=== PATIENT | female | born 1995 | race Caucasian/White ===

== ENCOUNTER 2018-07-08 16:00 | Inpatient (IN) ==
--- OUTSIDE RECORDS SUMMARY | 2018-07-08 19:12 | External Medical Summary | Continuity of Care Document ---
:1995 Author Organization [facility] Address [address] [place], [place] [id number] Phone Care Team Providers Name Role Phone Duong Enamorado DO Unavailable Unavailable Allergies, Adverse Reactions, Alerts Substance Reaction Severity Status amoxicillin Hives/Itchy Unknown Active Medications Medication Instructions Dosage Effective Dates Status Comments (start - stop) ranitidine 150 mg take 1 tablet by 150 MG - Active tablet oral route 2 times every day 28 mg take 1 tablet by Not Available - Active iron-800 mcg oral route every tablet day Tylenol 325 mg take 2 tablet by 650 MG - Active tablet oral route every 6 hours as needed Problems Condition Effective Dates (start - stop) Clinical Status Oth related conditions, - third trimester Obesity complicating , third - trimester Encntr for suprvsn of normal first - preg, third trimester 36 weeks gestation of - Encntr for suprvsn of normal first - preg, first trimester 11 weeks gestation of - Placenta previa specified as w/o - hemorrhage, unsp trimester Encntr for suprvsn of normal first - preg, second trimester Encounter For Screening For - Nuchal Translucency 15 weeks gestation of - Vomiting of , unspecified - Obesity complicating , third - trimester Encntr for suprvsn of normal first - preg, third trimester 38 weeks gestation of - Threatened Threatened - Oth related conditions, - third trimester Obesity complicating , third - trimester Encntr for suprvsn of normal first - preg, third trimester 31 weeks gestation of - Oth related conditions, - third trimester Obesity complicating , third - trimester Encntr for suprvsn of normal first - preg, third trimester 37 weeks gestation of - Oth related conditions, - third trimester Obesity complicating , third - trimester Encntr for suprvsn of normal first - preg, third trimester 33 weeks gestation of - Abnormal ultrasonic finding on - screening of mother Obesity complicating , third - trimester 31 weeks gestation of - Abnormal ultrasonic finding on - screening of mother Encntr for suprvsn of normal first - preg, second trimester 23 weeks gestation of - Oth allergy status, oth than to drugs - and biolg substances Abnormal ultrasonic finding on - screening of mother 23 weeks gestation of - Placenta previa specified as w/o - hemorrhage, unsp trimester 19 weeks gestation of - Obesity complicating , second - trimester Encntr for suprvsn of normal first - preg, second trimester 27 weeks gestation of - Obesity complicating , third - trimester Encntr for suprvsn of normal first - preg, third trimester 39 weeks gestation of - Obesity complicating , third - trimester 35 weeks gestation of - Obesity complicating , third - trimester Encntr for suprvsn of normal first - preg, third trimester 29 weeks gestation of - Encntr for suprvsn of normal first - preg, first trimester 13 weeks gestation of - Encntr for suprvsn of normal first - preg, second trimester 20 weeks gestation of - Oth allergy status, oth than to drugs - and biolg substances Encntr for suprvsn of normal first - preg, second trimester 19 weeks gestation of - Asthma Active Depression Active Procedures Procedure Date OB Visit No Charge Results Test Name Date and Time Measure Units Reference Range Abnormal Flag Comments Panel Description: Strep Gp B Culture+Rflx Strep Gp B Negative Negative Centers for Disease Control Culture+Rflx 11:56:00 and Prevention (CDC) and [place] Congressof Obstetricians and Gynecologists (ACOG) guidelines for prevention ofperinatal group B streptococcal (GBS) disease specify co-collection ofa vaginal and rectal swab specimen to maximize sensitivity of GBSdetection. Per the CDC and ACOG, swabbing both the lower vagina andrectum substantially increases the yield of detection compared withsampling the vagina alone. .Penicillin G, ampicillin, or cefazolin are indicated for intrapartumprophylaxis of GBS colonization. Reflex susceptibilitytesting should be performed prior to use of clindamycin only on GBSisolates from penicillin-allergic women who are considered a high riskfor anaphylaxis. Treatment with vancomycin without additional testingis warranted if resistance to clindamycin is noted. Advance Directives Directive Yes / No Effective Date File Name Unknown Encounters Encounter Practice Location Reason(s) Diagnoses Date Provider Care Team Description For Visit Members [facility] Sobbing In Womens complicating [place], , third 8 700 [address] trimesterEncntr Medical 152, for suprvsn of [place], normal [address], [place], preg, third [id number], [email or web address] weeks 120, [place] gestation of [facility], tel:+ [place], [phone], [place]. tel: [phone] [facility] Vomiting of Jun- Sobbing In Womens , [place], unspecifiedObesit 8 700 PO [address] y complicating Medical 152, , third [facility] [place], [facility] health[facility]tr [place], for suprvsn of [id number], normal first 120, [place] preg, third [place], tel:[phone] [id number] weeks [place], [place] [address], [place]. tel: [phone] [facility] Ot Aug-0 Sobbing In Womens related 9 [place], conditions, third 8 700 PO Box trimesterObesity Medical 1522, complicating [facility] [place], , third [place], [place], trimesterEncntr [id number], for suprvsn of 120, [place] normal first [place], tel:[phone] preg, third [place], [email or web address] weeks [address], gestation of [place]. tel: [phone] [facility] Ot Aug-0 Sobbing In Womens related 2 [place], conditions, third 8 700 PO Box trimesterObesity Medical 1522, complicating [facility] [place], , [place], [place], trimesterEncntr Suite , for suprvsn of 120, [place] normal first [place], tel:[phone] preg, third [place], [email or web address] weeks [id number], gestation of [place]. tel: [phone] [facility] Obesity Gokul-2 Sobbing In Womens Ultrasound complicating 6 [place], , third 8 700 PO [address] [email or web address] weeks Medical 1522, gestation of [facility], [place], [place], Suite , 120, [place], tel:[phone] [place], [address], [place]. tel: [phone] [facility] Ot Gokul-1 Sobbing In Womens related 2- [place], conditions, third 8 700 PO Box trimesterObesity Medical 1522, complicating [facility] [place], , third [place], [place], trimesterEncntr Suite , for suprvsn of 120, [place] normal first [place], tel:[phone] preg, third [place], [email or web address] weeks [address], gestation of [place]. tel: [phone] [facility] Ot Mio-2 Sobbing In Womens related 8- [place], conditions, third 8 700 PO Box trimesterObesity Medical 1522, complicating [facility] [place], , third [address], [place], trimesterEncntr [id number], for suprvsn of 120, [place] normal first [place], tel:[phone] preg, third [place], [id number] weeks [address], gestation of [place]. tel: [phone] [facility] Abnormal Mio-2 Sobbing In Womens Ultrasound ultrasonic 8 [place], finding on 8 700 PO Box Medical 1522, screening of [place], community healthObesity [place], [place], complicating [id number], , third 120, [place] [id number] weeks [place], tel:[phone] [place], [address], [place]. tel: [phone] [facility] Mio-1 Sobbing In Womens complicating 4 [place]. Jeffy [place], , third 8 700 PO Box trimesterEncntr Medical 1522, for suprvsn of [place], normal [address], [place], preg, third [id number], [email or web address] weeks 120, [place] gestation [place], tel:+[phone] [place], [address], [place]. tel: [phone] [facility] May-3 Sobbing Referring In Womens complicating [place]. Provider: Jeffy [place], , second 8 700 [place] PO Box trimesterEncntr Medical Sobbing L, 1522, for suprvsn of Center [address] [place] [address], [address], Medical [place], preg, second Suite Center [id number], [email or web address] weeks 120, Drive [place] gestation of [place], [address], tel:+[phone] [place], [place], [address], [place], [address]. [place]. tel:+ tel: [phone] [facility] Abnormal May-0 Sobbing In Womens ultrasonic 3 [place] VINNIE, finding on 8 700 PO Box Medical 1522, screening of [place], [facility] [place], suprvsn of normal [address] [id number], first preg, 120, [place] second [place], tel:[phone] [id number] weeks [place] [address], pregnancyOth [place]. allergy status, tel:[phone] oth than to drugs [phone] and biolg substances [facility] Abnormal May-0 Sobbing In Womens Ultrasound ultrasonic 3-201 [place] VINNIE, finding on 8 700 PO Box Medical 1522, screening of [place], weeks [place], [place], gestation of [id number], 120, [place], tel:+[phone] [place], [address], [place]. tel: [phone] [facility] Encntr for Apr-1 Sobbing In Womens suprvsn of normal 2-201 [facility] VIN[facility]IE, first preg, 8 700 PO Box second Medical 1522, [email or web address] weeks [place], gestation of [place], [place], pregnancyOth Suite , allergy status, 120, [place] oth than to drugs [facility], tel:+ [place], substances [address], [place]. tel: [phone] [facility] Encntr for Apr-0 Sobbing In Womens suprvsn of normal 5-201 [place] VINNIE, first preg, 8 700 PO Box second Medical 1522, [email or web address] weeks [place], gestation of [place], [place], [address] [id number], 120, [place], tel:+[phone] [place], [address], [place]. tel: [phone] [facility] Placenta previa Apr-0 Sobbing In Womens Ultrasound specified as w/o 5-201 [place] VINNIE, hemorrhage, unsp 8 700 PO Box [email or web address] weeks Medical 1522, gestation of [place], [place], [place], [address] [id number], 120, [place], tel:+316 [place], [address], [place]. tel: [phone] [facility] Placenta previa Mar-0 Sobbing In Womens specified as w/o 8-201 [place] VINNIE, hemorrhage, unsp 8 700 PO Box trimesterEncntr Medical 1522, for suprvsn of [place], normal first [place], [place], preg, second [address] [id number], trimesterEncounte 120, [place] r For [facility]za, tel:[phone] Screening For [place], Nuchal [address], [id number] [place]. weeks gestation tel:[phone] of [phone] [facility] Encntr for Feb-2 Sobbing In Womens Ultrasound suprvsn of normal 2-201 [facility], first preg, first 8 700 PO Box [email or web address] weeks Medical 1522, gestation of [place], [place], [address] [id number], 120, [place], tel:[phone] [place], [address], [place]. tel: [phone] [facility] Encntr for Feb-0 Sobbing In Womens suprvsn of normal 8-201 [facility], first preg, first 8 700 PO Box [email or web address] weeks Medical 1522, gestation of [place], [place], [address] [id number], 120, [place], tel:[phone] [place], [address], [place]. tel: [phone] Mickey [place] Threatened Timur-1 Sobbing In Womens 1-201 [facility] VINNIE, 8 700 PO Box Medical 1522, [place], [place], [address] [id number], 120, [place], tel:[phone] [place], [address], [place]. tel: [phone] Mickey [place] Threatened Timur-1 [place] In Womens 1-201 [place] VINNIE, 8 700 PO Box Medical 1522, [facility], , [place], 120, [id number], [place], [place], tel:[phone] , [place]. tel: [phone] Family History Family Member Diagnosis Age At Onset Unknown Immunizations Vaccine Date Status Comments Tdap completed Source: New Immunization Record Payers Payer name Insurance type Covered republican ID Authorization(s) [facility] Medicaid [id number] [facility] [id number] [facility] Medicaid [id number] Social History Type Description Quantity Date Captured Alcohol Use Details No Caffeine Use Details Unknown Tobacco Use Status Smoking Status Former smoker Vital Signs Date / Height Weight BMI Pulse Blood Temperature Respiratory Body Head BMI Time: Rate Pressure Rate Surface Circumference percentile Area 212.40 38.8 lbs 4 mm[Hg] 11:25 kg/m AM eter (2) Chief Complaint And Reason For Visit Unknown Chief Complaint And Reason For Visit Reason For Referral Reason For Referral Unknown Plan Of Care Date Type Action Status Goal Tobacco cessation counseling completed Appointment [facility] BOOKED Future Order: Radiology Order Ultrasound OB Follow-up ([id number]) Ordered Future Order: Radiology Order Ultrasound OB Follow-up ([id number]) Ordered Future Order: Radiology Order OB Detailed Complete Ultrasound Ordered ([id number]) Future Order: Radiology Order Ultrasound OB Follow-up ([id number]) Ordered Future Order: Radiology Order Nuchal Translucency ([id number]) Ordered Date Type Problem Goal Intervention Status Start Date Unknown. History Of Present Illness Encounter Date Complaint History Of Present Illness This patient has no known history of present illness Functional Status Encounter Date Functional Assessment Cognitive Assessment Unknown Medications Administered Medication Instructions Dosage Effective Dates (start - stop) Status Comments Drug Treatment Unknown Instructions Date Instruction Additional Information exercise indications for ultrasound influenza vaccine environmental / work hazards travel tobacco (ask, advise, assess, assist and arrange) use of any medications (including supplements, vitamins, herbs, OTC drugs) smoking counseling domestic violence seat belt use childbirth classes / hospital facilities hospital registration genetic testing new ob handbook HIV and other routine tests risk factors identified by history anticipated course of care nutrition and weight gain counseling, special diet toxoplasmosis precautions (cats / raw meat) sexual activity
--- OUTSIDE RECORDS SUMMARY | 2018-07-08 19:13 | External Medical Summary | Continuity of Care Document ---
:1995 Author Organization [facility] Allergies Active Description Code Type Severity Reaction Onset Reported/ Identified Relationship Clinical to Patient Status Yes amoxicillin 3675 1 N/A Hives/Itc hy Yes No Known NKMA N/A N/A 09/08/2014 Medication Allergies Yes No Known Aller Unknown N/A 02/12/2015 Allergies gy Yes amoxicillin Aller Unknown N/A 06/28/2018 gy Medications Medication Packaging Start Stop Route Dosage Sig Date Date 1 tabs 10/09/20 Oral 4 mg ondansetron(Zofra 4 14 1 tabs, n 4 mg oral Oral, q6hr, tablet) 30 tabs, PRN: as needed for nausea/vomi ting 1 packets 12/07/19 Oral azithromycin(Zith 5 15 1 packets, romax Z-Cristofer 250 Oral, mg oral tablet) Daily, as directed on package labeling, 6 tabs 1 caps 12/12/19 Oral 200 mg benzonatate(Leslye 5 15 1 caps, yael 200 mg oral Oral, TID, capsule) 30 caps 2 puffs Inhalation albuterol(Ventoli 5 2 puffs, n HFA 90 mcg/inh Inhalation, inhalation q4hr, 1 aerosol) inhalers, PRN: as needed for wheezing PO 4 mg Zofran Odt 5 Q6HR PO 250 mg Zithromax 5 DAILY Each SubCutaneous mg etonogestrel(Nexp 5 Each, lanon 68 mg SubCutaneou subcutaneous s, Once implant) 2 tabs 08/03/20 Oral 10 mg norethindrone(Ayg 5 15 2 tabs, estin 5 mg oral Oral, tablet) Daily, 20 tabs 03/15/20 IntraMuscular 4 mg ondansetron(ondan 5 15 4 mg, setron) IntraMuscul ar, Once 1 tabs 09/07/20 Oral 10 mg escitalopram(Wenceslao 5 15 10 mg=1 pro 10 mg oral tabs, Oral, tablet) Daily, 30 tabs, 0 Refill(s) 1 tabs Oral 30 mg PARoxetine(Paxil 5 30 mg=1 30 mg oral tabs, Oral, tablet) Daily, 30 tabs, 0 Refill(s) 0.5 mL 09/07/20 IntraMuscular influenza virus 5 15 0.5 mL, vaccine, IntraMuscul inactivated(influ ar, Once cony virus vaccine, inactivated) 1 caps 07/12/20 Oral 500 mg cephalexin(Keflex 7 17 500 mg=1 500 mg oral caps, Oral, capsule) q12hr, for 10 days, 20 caps, 0 Refill(s) 1 tabs 08/01/20 Oral 25 mg meclizine(meclizi 7 17 25 mg=1 ne 25 mg oral tabs, Oral, tablet) q6hr, for 30 days, PRN: as needed for motion sickness, 30 tabs, 0 Refill(s) 1 tabs 08/01/20 Oral 10 mg propranolol(propr 7 17 10 mg=1 anolol 10 mg oral tabs, Oral, tablet) BID, for 30 days, 60 tabs, 0 Refill(s) 1 gayathri 07/08/20 Vaginal metroNIDAZOLE 7 17 1 gayathri, topical(MetroGel- Vaginal, Vaginal 0.75% Bedtime vaginal gel with (once a applicator) day), for 5 days, 70 g, 0 Refill(s) Tablet 03/13/20 LORATADINE 8 18 take 1 tablet by oral route every day Each 06/20/20 Cradle 8 18 PO 1 each Vitamins 8 DAILY Problems Date Dx Attending Type Code Diagnosis Diagnosed By Coded 03/22/2016 Duong Enamorado Final Z30.09 Encounter for other general counseling and advice on contraception 07/02/2017 Duong Enamorado Final F41.1 Generalized anxiety disorder 07/02/2017 Duong Enamorado Final R42 Dizziness and giddiness 07/02/2017 Duong Enamorado Final R59.0 Localized enlarged lymph nodes 07/03/2017 Regi Rooney Final R59.0 Localized enlarged lymph nodes 11/22/2017 Christiano Hutchins W O20.0 Threatened L 01/03/2018 Christiano Hutchins W Z34.01 Encntr for suprvsn L of normal first preg, first trimester 01/03/2018 Christiano Hutchins Ariadna Z3A.13 13 weeks gestation L of 02/05/2018 Idalia Whitinglyn W O20.0 Threatened J 02/05/2018 Idalia Whitinglyn W O20.0 Threatened J 02/05/2018 Cuong, Christiano W O20.0 Threatened L 02/05/2018 Cuong, Christiano W O20.0 Threatened L 02/05/2018 Cuong Christiano Ariadna Z34.01 Encntr for suprvsn L of normal first preg, first trimester 02/05/2018 Christiano Hutchins Ariadna Z3A.11 11 weeks gestation L of 02/05/2018 Christiano Hutchins Ariadna Z34.01 Encntr for suprvsn L of normal first preg, first trimester 02/05/2018 Christiano Hutchins Ariadna Z3A.11 11 weeks gestation L of 02/14/2018 Christiano Hutchins W O44.00 Placenta previa L specified as w/o hemorrhage, unsp trimester 02/14/2018 Christiano Hutchins Ariadna Z3A.19 19 weeks gestation L of 03/14/2018 Christiano Hutchins Ariadna O28.3 Abnormal ultrasonic L finding on screening of mother 03/14/2018 Christiano Hutchins Ariadna Z3A.23 23 weeks gestation L of 04/11/2018 Christiano Hutchins Ariadna O99.212 Obesity L complicating , second trimester 04/11/2018 Cuong Christiano Ariadna Z34.02 Encntr for suprvsn L of normal first preg, second trimester 04/11/2018 Christiano Hutchins Ariadna Z3A.27 27 weeks gestation L of 05/09/2018 Christiano Hutchins Ariadna O28.3 Abnormal ultrasonic L finding on screening of mother 05/09/2018 Christiano Hutchins Ariadna O99.213 Obesity L complicating , third trimester 05/09/2018 Cuong Christiano Ariadna Z3A.31 31 weeks gestation L of 06/06/2018 Christiano Hutchins Ariadna O99.213 Obesity L complicating , third trimester 06/06/2018 CuongChristiano Z3A.35 35 weeks gestation L of 06/28/2018 ADRIÁN DAVIS, G56.03 Carpal tunnel ADRIÁN DAVIS, CYNTHIA S syndrome, bilateral CYNTHIA S upper limbs 06/28/2018 ADRIÁN DAVIS, M25.531 Pain in right wrist ADRIÁN DAVIS, CYNTHIA ANDERSONFER S 06/28/2018 ADRIÁN DAVIS, M65.4 Radial styloid ADRIÁN DAVIS, CYNTHIA Lowe tenosynovitis [de CYNTHIA S Quervain] 06/28/2018 ADRIÁN DAVIS, M79.642 Pain in left hand ADRIÁN DAVIS, CYNTHIA ANDERSONFER S Procedures Code Description [place] [address] Removal, 03/22/2016 non-biodegradable drug delivery implant 69437 Office or 03/22/2016 other outpatient visit for the evaluation and management of an established patient, which requires at least 2 of these 3 rivas components: An expanded problem focused history; An expanded prob 19055 Office or 07/02/2017 other outpatient visit for the evaluation and management of an established patient, which requires at least 2 of these 3 rivas components: A detailed history; A detailed examination; Medical d 12190 Collection of 07/03/2017 venous blood by venipuncture 75633 Comprehensive 07/03/2017 metabolic panel This panel must include the following: Albumin (68788) Bilirubin, total (61938) Calcium, total (61779) Carbon dioxide (bicarbonate) (27987) Chloride (15427) Creatinine (8 09554 Blood count; 07/03/2017 complete (CBC), automated (Hgb, Hct, RBC, WBC and platelet count) 41557 Antibody; 07/03/2017 herpes simplex, type 1 70492 Antibody; 07/03/2017 herpes simplex, type 2.. 06228 Culture, 07/03/2017 bacterial; any other source [place] [address] Smear, 07/03/2017 primary source with interpretation; wet mount for infectious agents (eg, saline, Alea ink, EILER preps) 04102 Infectious 07/03/2017 agent detection by nucleic acid (DNA or RNA); Chlamydia trachomatis, amplified probe technique.. 66532 Infectious 07/03/2017 agent detection by nucleic acid (DNA or RNA); Neisseria gonorrhoeae, amplified probe technique.. 47767 Office or 07/03/2017 other outpatient visit for the evaluation and management of an established patient, which requires at least 2 of these 3 rivas components: A detailed history; A detailed examination; Medical d 07101 11/22/2017 Office/outpatient visit,sharon bella [id number] OB US < 14 11/22/2017 WKS, SINGLE FETUS 40830 Venpnctr 12/20/2017 fngr/heel/ear stick routne 32693 OB Visit No 12/20/2017 Charge 66579 OB Panel With 12/20/2017 An HIV 21258 Cult, bactr, 12/20/2017 mack colonycnt, urine 55650 Cult, bactr, 12/20/2017 ident isolate, urine 90310 Infct antign, 12/20/2017 chlamydia trac, ampl 22045 Neisseria 12/20/2017 Gonorrhea, Amplified DNA 41504 Ultrasound, 01/03/2018 Nuchal Translucency Measurement 67774 OB US, 02/14/2018 DETAILED, SNGL FETUS 74567 Ultrasnd preg 03/14/2018 uterus, flwup/repeat 75891 OB Visit No 04/11/2018 Charge 91373 Ultrasnd preg 05/09/2018 uterus, flwup/repeat 95976 Ultrasnd preg 06/06/2018 uterus, flwup/repeat Results Test Result Range Hanging Drop - 07/03/17 14:35 Clue Cells Hanging Drop 20 %/epis Epithelials Hanging Drop >50 /LPF Trichomonas Hanging Drop None seen /HPF WBC Hanging Drop 2 /HPF Yeast Hanging Drop None seen /HPF Collection Site Vaginal NA CBC With Platelet No Differential - 07/03/17 14:53 HCT 47.3 % 37.0-47.0 HGB 15.5 g/dL 12.0-16.0 MCH 29.2 pg 27.0-32.0 MCHC 32.8 g/dL 32.0-36.0 MCV 89.1 fL 82.0-99.0 MPV 12.7 fL 8.8-14.8 Platelet Count 163 K/uL 150-400 RBC 5.31 10*6/uL 4.00-5.20 RDW 13.2 % 11.5-14.5 WBC 4.4 K/uL 4.8-10.8 eGFR - 07/03/17 14:53 eGFR >60 mL/min >60 Herpes Simplex 1/2 IgG - 07/03/17 14:53 HSV Type 1 Ab IgG Positive NA Negative HSV Type 2 Ab IgG Negative NA Negative Chlamydia Trachomatis and N gonorrhoeae - 07/03/17 15:12 Source URINE NA Source, N gonorrhoeae URINE NA Encounters ACCT No. Visit Discharge Status Pt. Type Provider Facility Loc./Unit Complaint Date/Time [id number] 07/02/2018 07/02/2018 CLS Outpatien Sobbing, 13:40:00 23:59:59 t Christiano Cartwright [id number] 06/26/2018 06/26/2018 CLS Outpatien Sobbing, 14:08:00 23:59:59 t Christiano Cartwright [id number] 06/25/2018 06/25/2018 CLS Outpatien Sobbing, 10:30:00 23:59:59 anali Cartwright [id number] 06/24/2018 06/24/2018 CLS Outpatien Sobbing, 15:00:00 23:59:59 anali Cartwright [id number] 06/20/2018 06/20/2018 CLS Outpatien Sobbing, 14:00:00 23:59:59 anali Cartwright [id number] 06/13/2018 06/13/2018 CLS Outpatien Sobbing, 11:00:00 23:59:59 anali Cartwright [id number] 06/06/2018 06/06/2018 CLS Outpatien Sobbing, 10:15:00 23:59:59 anali Cartwright [id number] 05/23/2018 05/23/2018 CLS Outpatien Sobbing, 11:10:00 23:59:59 anali Cartwright [id number] 05/09/2018 05/09/2018 CLS Outpatien Sobbing, 13:00:00 23:59:59 anali Cartwright [id number] 05/09/2018 05/09/2018 CLS Outpatien Sobbing, 12:45:00 23:59:59 anali Cartwright [id number] 05/01/2018 05/01/2018 CLS Outpatien Sobbing, 14:32:00 23:59:59 anali Cartwright [id number] 04/25/2018 04/25/2018 CLS Outpatien Sobbing, 10:45:00 23:59:59 anali Cartwright [id number] 04/11/2018 04/11/2018 CLS Outpatien Sobbing, 10:15:00 23:59:59 t Christiano Cartwright [id number] 03/14/2018 03/14/2018 CLS Outpatien Sobbing, 11:25:00 23:59:59 anali Cartwright [id number] 03/14/2018 03/14/2018 CLS Outpatien Sobbing, 11:15:00 23:59:59 anali Cartwright [id number] 02/21/2018 02/21/2018 CLS Outpatien Sobbing, 13:40:00 23:59:59 anali Cartwright [id number] 02/14/2018 02/14/2018 CLS Outpatien Sobbing, 09:05:00 23:59:59 anali Cartwright [id number] 02/14/2018 02/14/2018 CLS Outpatien Sobbing, 08:45:00 23:59:59 anali Cartwright [id number] 01/17/2018 01/17/2018 CLS Outpatien Sobbing, 13:30:00 23:59:59 anali Cartwright [id number] 01/09/2018 01/09/2018 CLS Outpatien Sobbing, 16:25:00 23:59:59 anali Cartwright [id number] 01/03/2018 01/03/2018 CLS Outpatien Sobbing, 10:00:00 23:59:59 anali Cartwright [id number] 12/20/2017 12/20/2017 CLS Outpatien Sobbing, 10:45:00 23:59:59 anali Cartwright [id number] 11/22/2017 11/22/2017 CLS Outpatien Sobbing, 11:48:00 23:59:59 anali Cartwright [id number] 11/22/2017 11/22/2017 CLS Outpatien Whiting, 10:45:00 23:59:59 anali Leidy Sterling [id number] 06/28/2018 06/28/2018 DIS Outpatien ADRIÁN Cobb [employer]- Bilater[employer] 35 07:45:00 09:08:00 t , Ortho & l Wrist [employer] [facility] [employer] [facility] [facility] Sports [facility] S Medicine [id number] 07/08/2018 ACT Inpatient SOBBING Cobb 59 19:00:00 DO, [facility] [id number] 07/03/2017 07/03/2017 DIS Outpatien Tandoc, Via [facility] nausea.head 25 13:44:00 23:59:00 t Regi Yanez aches. Clinic lymph nodes swollen. debby [id number] 07/02/2017 07/02/2017 DIS Outpatien Teck, [facility] HEADACHES 78 15:31:00 23:59:00 anali Yanez SWOLLEN Clinic LYMPH NODES [id number] 03/22/2016 03/22/2016 DIS Outpatien Teck, [facility] removal of 49 15:25:00 23:59:00 t Duong Yanez nexplanon Clinic [id number] 02/15/2016 02/15/2016 DIS Outpatien Kuhn, [facility] VOMTING HAD 05 14:19:00 23:59:00 anali Huerta TING OF A Clinic BLOOD SORE THROAT [id number] 10/14/2015 10/14/2015 DIS Outpatien Tandoc, [facility] counseling 55 15:54:00 23:59:00 t Regi Yanez Clinic [id number] 09/29/2015 09/29/2015 DIS Outpatien Tandoc, Via [facility] New FM Counseling 58 15:50:00 23:59:00 t Regi Yanez [facility] [id number] 09/17/2015 09/17/2015 DIS Outpatien Tandoc, Via [facility] New FM Counseling 23 15:47:00 23:59:00 t Regi Yanez [facility] [id number] 09/09/2015 09/09/2015 DIS Outpatien Tandoc, Via [facility] New FM COUNSELING 71 15:41:00 23:59:00 t Regi Yanez [facility] [id number] 09/07/2015 09/07/2015 DIS Outpatien Teck, Via [facility] 1MTH RCK 67 12:57:00 23:59:00 t Duong Yanez DEPRESSION Clinic [id number] 08/03/2015 08/03/2015 DIS Outpatien Teck, Via [facility] New DEPRESSION 91 12:45:00 23:59:00 anali Yanez [facility] [id number] 01/28/2015 01/28/2015 DIS Outpatien Teck, Via [facility] New ASTHMA 05 14:32:00 23:59:00 anali Yanez CHECK Clinic DISCUSS CONTROL OPTIONS [id number] 12/02/2014 12/02/2014 CLS Outpatien Teck, [facility] 22 13:56:00 23:59:59 t Duong Yanez FEW Clinic DAYS,BODY ACHES,COUGH [id number] 03/15/2015 Document 66 14:06:00 Registrat ion [id number] 02/11/2015 Document 31 14:29:00 Registrat ion [id number] 07/04/2017 Document 1647 05:16:47 Registrat ion [id number] 07/03/2017 Document 1703 05:17:03 Registrat ion [id number] 09/08/2015 Document 1822 05:18:22 Registrat ion [id number] 09/01/2015 Document 0516 14:05:16 Registrat ion [id number] 09/01/2015 Document 0739 12:07:39 Registrat ion [id number] 09/01/2015 Document 3325 11:33:25 Registrat ion [id number] 09/01/2015 Document 0928 11:09:28 Registrat ion [id number] 09/01/2015 Document 0138 11:01:38 Registrat ion [id number] 09/01/2015 Document 2642 10:26:42 Registrat ion
[2018-07-08] MEDS ORDERED: MAG-AL + SIM ORAL LIQUID 30ml PO PRN (19:19)
[2018-07-08] MEDS ORDERED: ACETAMINOPHEN 500 MG TABLET PO PRN (19:19)
[2018-07-08] MEDS ORDERED: CARBOPROST 250 MCG/ML INJECTION IM PRN (19:19)
[2018-07-08] MEDS ORDERED: METHYLERGONOVINE 0.2 MG/ML INJECTION IM PRN (19:19)
[2018-07-08] MEDS ORDERED: CALCIUM CARBONATE Chewable 500mg TABLET PO PRN (19:19)
[2018-07-08] MEDS ORDERED: TERBUTALINE 1 MG/ML VIAL SQ PRN (19:21)
[2018-07-08] MEDS ORDERED: DINOPROSTONE 10 MG VAGINAL INSERT VG ONE (19:21)
[2018-07-08] MEDS: LR 1,000 ML IV PRN (19:45)
[2018-07-08] MEDS: SALINE FLUSH 10ml SYRINGE IV PRN (20:14)
[2018-07-09] MEDS: SALINE FLUSH 10ml SYRINGE IV PRN (02:04)
[2018-07-09 02:24] VITALS: BMI 38.6
[2018-07-09] MEDS: D5LR 1,000 ML IV PRN ×2 (05:05→14:13)
[2018-07-09] MEDS: LR 1,000 ML IV PRN ×2 (05:15→13:45)
[2018-07-09] MEDS ORDERED: OXYTOCIN DRIP 30 UNIT/500 ML ML IV PRN (06:00)
--- NOTE | 2018-07-09 08:16 | Anesthesia Preoperative Report ---
Anesthesia Epidural/Spinal Rec - Date and Time Date: 07/09/18 Procedure: Labor Epidural Plan: Epidural - Vital Signs Vital Signs: Temperature 98.3 F 07/08/18 19:31 Pulse Rate 101 H 07/08/18 19:31 Respiratory Rate 16 07/08/18 19:31 Blood Pressure 133/72 07/08/18 19:31 Pulse Oximetry 99 07/08/18 19:31 /Para: P:0 - Medictaions & Allergies Inpatient Medications: Current Medications Acetaminophen (Tylenol) 500 - 1,000 mg PO Q4H PRN PRN Reason: Pain Al Hydroxide/Mg Hydroxide (Maalox Plus) 30 ml PO Q3H PRN PRN Reason: Indigestion Calcium Carbonate (Tums) 500 - 1,000 mg PO Q2H PRN PRN Reason: Indigestion Carboprost Tromethamine (Hemabate) 250 mcg IM O PRN PRN Reason: .Downtime Diphenhydramine HCl (Benadryl) 50 mg PO HS PRN PRN Reason: Sleep Lactated Ringer's (Lactated Ringers) 1,000 mls @ 999 mls/hr IV .Q1H1M PRN Last Admin: 07/09/18 05:15 Dose: 999 mls/hr Dextrose/Lactated Ringer's (Dextrose 5%-Lactated Ringers) 1,000 mls @ 125 mls/ hr IV .Q8H PRN PRN Reason: Labor Last Admin: 07/09/18 05:05 Dose: 125 mls/hr Oxytocin (Pitocin Drip) 30 unit in 500 mls @ 2 mls/hr IV .Q24H PRN; Protocol PRN Reason: Induction/Augmentation Last Admin: 07/09/18 05:05 Dose: 2 mls/hr Methylergonovine Maleate (Methergine) 0.2 mg IM O PRN Misoprostol (Cytotec) 800 mcg NE ONCE PRN Sodium Chloride (Iv Flush) 10 - 80 ml IV PRN PRN PRN Reason: Flushing Last Admin: 07/09/18 02:04 Dose: 10 ml Terbutaline Sulfate (Brethine) 0.25 mg SQ PRN PRN Allergies/Adverse Reactions: Allergies Allergy/AdvReac Type Severity Reaction Status Date / Time amoxicillin Allergy Verified 07/08/18 22:26 - Home Medications Home Medications: Home Medications Medication Instructions Recorded Confirmed Type 1 tab PO DAILY 06/28/18 06/28/18 History vitamin,calcium,bikzsufr-pyhj-sudvj acid tablet Pnv No.95/Ferrous Fum/Folic AC 1 each PO DAILY 07/09/18 07/09/18 History [ Tablet] - Medical History Respiratory: Reports: Asthma (Well controlled) Other History: Reports: Now - Surgical History Reproductive Surgery/Treatment: DENIES: Section Anesthesia Reactions: None (Never had surgery) Hx Family Anesthesia Reaction: No History of Motion Sickness: No - Social History Smoking Status: Former smoker Substance Use Type: does not use Alcohol Intake: never Alcohol Intake Frequency: does not drink Hx Chewing Tobacco Use: No - Pertinent Findings Lab Data: CBC and BMP 07/08/18 19:45 EKG Rhythm: Normal Sinus Rhythm - Physical Exam Respiratory Exam: lungs clear, bilateral breath sounds equal Cardiovascular Exam: regular rate and rhythm - Airway Assessment Mallampati Score: II TMD: 3 Fingerbreadths Neck Extension: good Overall Assessment: no airway concerns - ASA ASA Score: 2 - Discussion Discussion: Discussed risks/options/alternatives of anesthesia and questions answered. Patient consents. Nursing pain assessment noted. Anesthesia Discussion: family member Attestation Statement: Prior to the delivery of any anesthetic medication, I examined the patient, developed the plan, obtained the patient's consent and discussed the risk and benefits of the procedure with the patient/guardian.
--- NOTE | 2018-07-09 14:51 | Anesthesia Postoperative Note ---
- Date and Time Date: 07/09/18 - Status Patient Participated in Evaluation: Patient Participated in Person Vital Signs: Temperature 98.3 F 07/08/18 19:31 Pulse Rate 101 H 07/08/18 19:31 Respiratory Rate 16 07/08/18 19:31 Blood Pressure 133/72 07/08/18 19:31 Pulse Oximetry 99 07/08/18 19:31 Respiratory Function: Airway Patent, Regular Respirations Cardiovascular Function: Regular Pulse Mental Status: Alert and Oriented Pain Intensity: 0 Hydration: Taking PO Fluids Nausea/Vomiting: None Complications During Recover: None Apparent Post Anesthesia Care Notes: ambulating without problems. - Follow-Up Instructions Instructions: Per Surgeon
[2018-07-09] MEDS ORDERED: DiphenhydrAMINE 50 MG/ML INJECTION IVP PRN (23:25)
[2018-07-09] MEDS ORDERED: ONDANSETRON 4 MG/2 ML INJECTION IVP PRN (23:25)
[2018-07-09] MEDS ORDERED: ROPIVACAINE 1% 10MG/ML INJ 200 MG, SUFentanil 50 MCG in NS 100 ML EPI PRN (23:25)
[2018-07-09] MEDS ORDERED: NALOXONE 0.4 MG/ML INJECTION IVP PRN (23:25)
[2018-07-10] MEDS: D5LR 1,000 ML IV PRN (00:01)
[2018-07-10] MEDS: LR 1,000 ML IV PRN (03:08)
--- NOTE | 2018-07-10 07:02 | OB/GYN Procedure Note ---
Delivery date: 07/10/18 Events: Labor Induction Intrapartal events: Prolonged Labor > 20 hours, Febrile Induction method: per pitocin protocol Delivery augmentation: rupture of membranes Delivery monitor: external FHT, internal uterine Route of delivery: vacuum extraction Indication for instrumentation: maternal exhaustion Episiotomy description: None Laceration description: Periurethral - 1st Degree Delivery repair: chromic Anesthesia type: Epidural Disposition: floor - [place] Baby 1 presentation: Vertex position: Vertex-by exam Placenta delivery description: Spontaneous cord vessel description: 3 Vessels at 1 minute: 7 at 5 minutes: 9
[2018-07-10] MEDS ORDERED: CEFOXITIN 2 GM in NS 100 ML IV ONE (07:18)
[2018-07-10] MEDS ORDERED: MAG-AL + SIM ORAL LIQUID 30ml PO PRN (07:40)
[2018-07-10] MEDS ORDERED: ACETAMINOPHEN 500 MG TABLET PO PRN (07:40)
[2018-07-10] MEDS ORDERED: CALCIUM CARBONATE Chewable 500mg TABLET PO PRN (07:40)
[2018-07-10] MEDS ORDERED: OXYTOCIN DRIP 30 UNIT/500 ML ML IV PRN (07:40)
[2018-07-10] MEDS ORDERED: HYDROCORTISONE 2.5% CREAM 30gm RECTALLY PRN (07:40)
[2018-07-10] MEDS ORDERED: DiphenhydrAMINE 25 MG CAPSULE PO PRN (07:40)
[2018-07-10] MEDS ORDERED: OXYTOCIN DRIP 30 UNIT/500 ML ML IV SCH (07:45)
[2018-07-10] MEDS: IBUPROFEN 800 MG TABLET PO PRN ×2 (09:44→19:15)
--- NOTE | 2018-07-10 10:59 | Labor and Delivery Note ---
DATE 07/10/2018 There was a vacuum-assisted vaginal delivery over intact perineum with epidural anesthesia. No nuchal was noted. The baby was in the vertex position. The vacuum was applied for maternal exhaustion when the patient was noted to be complete, +2. The vacuum was applied for approximately two minutes. There were approximately six pulls with two contractions, no pop-offs and pressure was released in between contractions. There was a spontaneous vaginal delivery of the placenta and a right periurethral that was repaired with 3-0 chromic. EBL was 400 mL. Arin is a G1, P0 who presented to Maternal/Child for induction of labor and cervical ripening on the for logistics. She was noted to be closed, thick and high and had Cervidil placed. Cervidil was removed approximately eight hours after being placed and Pitocin was started. On the morning of the , a Yip balloon was placed in the cervix to help mechanically dilate the cervix. When it fell out, she was noted to be approximately 4 cm. She was then allowed to progress slowly with Pitocin. She did have amniotomy performed during the day and an IUPC was placed after no cervical change for four hours at approximately 4:00 p.m. in the afternoon. At this time, she was noted to have adequate MVUs, the Pitocin was decreased to 10 units and she continued to have adequate MVUs and she continued to progress slowly. She was 5 cm for approximately four hours during the evening before she was noted to be 6 and 100 , 0 station at approximately 10:00 p.m. She then progressed to 8 and 0 and then complete and 0 and labored down for an hour. She pushed for three hours with modest progress. She was noted to have a maternal fever at this time and was complaining of maternal exhaustion and requested assistance. Risks, benefits and alternatives to vacuum-assisted vaginal delivery were discussed with the patient at this time and the vacuum was performed as stated earlier. PAUL
[2018-07-10] MEDS: DOCUSATE CALCIUM 240 MG CAPSULE PO SCH (11:27)
[2018-07-10] MEDS: Oxycodone/Acetaminophen 5/325 1 TAB PO PRN ×2 (11:27→19:14)
[2018-07-11] MEDS: Oxycodone/Acetaminophen 5/325 1 TAB PO PRN ×4 (00:20→21:25)
[2018-07-11] MEDS: DOCUSATE CALCIUM 240 MG CAPSULE PO SCH (08:01)
[2018-07-11] MEDS: IBUPROFEN 800 MG TABLET PO PRN ×2 (08:02→15:46)
--- NOTE | 2018-07-11 08:20 | OB/GYN Progress Note ---
OB-PP Progress Note - General PPD1 Maternal Group B Strep: Negative Maternal Rh: positive Maternal Rubella Status: Immune - Subjective Date: 07/11/18 Lochia: Minimal Pain: controlled Voiding: voiding Nausea or Vomiting Present: No - Objective Vital Signs: Last Vital Signs Temp 98.8 F 07/11/18 07:55 Pulse 82 07/11/18 07:55 Resp 18 07/11/18 07:55 BP 128/76 07/11/18 07:55 Pulse Ox 93 07/11/18 07:55 General: alert and oriented Cardiovascular: regular rate,rhythm Respiratory: non-labored Abdomen: fundus firm Side: bilateral Site: ankle Edema Degree: 1+ - Assessment Assessment: SP, DINORAHD - Plan Plan: routine care
[2018-07-12] MEDS: Oxycodone/Acetaminophen 5/325 1 TAB PO PRN ×3 (04:04→13:57)
[2018-07-12] MEDS: IBUPROFEN 800 MG TABLET PO PRN ×2 (04:05→13:58)
[2018-07-12 08:28] VITALS: O2SAT 100
[2018-07-12] MEDS: DOCUSATE CALCIUM 240 MG CAPSULE PO SCH (08:31)
--- NOTE | 2018-07-12 08:56 | OB/GYN Progress Note ---
OB-PP Progress Note - General PPD2 Maternal Group B Strep: Negative Maternal Rh: positive Maternal Rubella Status: Immune - Subjective Date: 07/12/18 Lochia: Minimal Pain: controlled Voiding: voiding Nausea or Vomiting Present: No - Objective Vital Signs: Last Vital Signs Temp 98.3 F 07/12/18 08:15 Pulse 76 07/12/18 08:15 Resp 16 07/12/18 08:32 BP 138/71 07/12/18 08:15 Pulse Ox 100 07/12/18 08:15 Urine Output: good General: alert and oriented Cardiovascular: regular rate,rhythm Respiratory: non-labored Abdomen: fundus firm, non-tender Extremities: non-tender Edema: none - Assessment Assessment: SPAIDE - Plan Plan: routine care, discharge home
[2018-07-12 17:46] VITALS: BP 135/76; PULSE 84; TEMP 98.4
[2018-07-12 17:53] VITALS: RESP 16
== END 2018-07-12 16:45 | disposition home or self-care (01) | DRG 774 ==
LOC: MC 19:00 → SRG 07-10 09:44 → MC 07-10 20:50
PROVIDERS: ADMIT Obstetrics & Gynecology; ATTEND Obstetrics & Gynecology